=== PATIENT | female | born 1985 | race Hispanic/Latino ===

== ENCOUNTER 2018-05-21 20:20 | Emergency (ER) | payer BC ==
[~2018-05-21] VITALS: Ht 160 cm; Wt 93.0 kg
== END 2018-05-21 21:59 | disposition home or self-care (01) ==
LOC: FSED 20:20
DX: Z77.021 Contact with and (suspected) exposure to benzene (principal); R51 Headache; R11.0 Nausea
CPT/HCPCS: 99282

== ENCOUNTER 2018-08-05 14:30 | Emergency (ER) | payer BC ==
[~2018-08-05] VITALS: Ht 160 cm; Wt 93.9 kg
[2018-08-05] MEDS ORDERED: ONDANSETRON HCL 4 MG ORAL DISINTEGRATING TAB PO ONE (14:45)
[2018-08-05] MEDS ORDERED: ACETAMINOPHEN 325 MG TAB PO ONE (14:45)
[2018-08-05] MEDS ORDERED: IBUPROFEN 200 MG TAB PO ONE (14:45)
[2018-08-05] MEDS ORDERED: IBUPROFEN 200 MG TAB ONE (15:02)
[2018-08-05] MEDS ORDERED: ONDANSETRON HCL 4 MG ORAL DISINTEGRATING TAB ONE (15:02)
[2018-08-05] MEDS ORDERED: ACETAMINOPHEN 325 MG TAB ONE (15:03)
--- NOTE | 2018-08-05 15:20 | Diagnostic Imaging Report ---
EXAM: Lumbar spine radiographs-3 views INDICATION: Back pain radiating to the right leg. COMPARISON: None FINDINGS: BONES: The alignment is within normal limits. No acute displaced fractures. Vertebral body heights are preserved. DISCS: Disc spaces are preserved. JOINTS: The facet joints and sacroiliac joints are unremarkable. OTHER: Moderate amount stool in the colon. IMPRESSION: No acute lumbar spine radiographic findings. Signed by: Dr. Monika Del Toro MD on 08/05/2018 3:17 PM
[2018-08-05 15:46] VITALS: BP 115/76
== END 2018-08-05 15:52 | disposition home or self-care (01) ==
LOC: FSED 14:30
DX: K42.9 Umbilical hernia without obstruction or gangrene (principal)
CPT/HCPCS: 72100; 81003; 81025; 99283; Q0162

== ENCOUNTER 2018-09-11 23:00 | Emergency (ER) | payer BC ==
[~2018-09-11] VITALS: Ht 157.5 cm; Wt 93.9 kg
--- OUTSIDE RECORDS SUMMARY | 2018-09-11 23:02 | XMS REPORT ---
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 Allergies, Adverse Reactions, Alerts This patient has no known allergies or adverse reactions. Medications This patient has no known medications. Results Test Description Test Time Test Comments Text Results Atomic Results Result Comments L SPINE 2-3 WS - HOPD 2018-08-05 15:16:00 [place] [address] Patient Name: MIRTHA GALEANO MR #: [id number] : 1985 Age/Sex: 32/F Req #: [id number] Adm Physician: Ordered by: JORGE SEXTON MD Report #: [id number] Location: [facility] Room/Bed: Procedure: [id number] HOPD/L SPINE 2-3 VEWS - HOPD Exam Date: 08/05/18 Exam Time: 1507 REPORT STATUS: Signed EXAM: Lumbar spine radiographs-3 views INDICATION: Back pain radiating to the right leg. COMPARISON: None FINDINGS: BONES: The alignment is within normal limits. No acute displaced fractures. Vertebral body heights are preserved. DISCS: Disc spaces are preserved. JOINTS: The facet joints and sacroiliac joints are unremarkable. OTHER: Moderate amount stool in the colon. IMPRESSION: No acute lumbar spine radiographic findings. Signed by: Dr. Ana Del Toro MD on 08/05/2018 3:17 PM Dictated By: ANA DEL TORO MD [id number] Transcribed By: RAY on 08/05/18 [id number] COPY TO: JORGE SEXTON MD
== END 2018-09-12 00:04 | disposition left against medical advice (07) ==
LOC: FSED 23:00
DX: R05 Cough (principal)